=== PATIENT | male | born 1980 | race Two or more races ===

== ENCOUNTER 2019-06-19 20:06 | Emergency (ER) | payer MEDICAID ==
[~2019-06-19] VITALS: Ht 185.4 cm; Wt 93.4 kg
[~2019-06-19 20:06] MED LIST: GLY5T; METF-372; NOVOLOG
[2019-06-19 20:33] VITALS: BP 137/85
[2019-06-20] MEDS ORDERED: cefTRIAXone SOD 1,000 MG VL IM ONE (01:00)
== END 2019-06-20 01:10 | disposition home or self-care (01) ==
LOC: ER 20:16
DX: E11.621 Type 2 diabetes mellitus with foot ulcer (principal); L97.529 Non-pressure chronic ulcer of other part of left foot with unspecified severity; M79.672 Pain in left foot; E11.22 Type 2 diabetes mellitus with diabetic chronic kidney disease; N18.6 End stage renal disease; Z79.84 Long term (current) use of oral hypoglycemic drugs; Z79.899 Other long term (current) drug therapy
CPT/HCPCS: 73700; 96372; 99284; J0696

== ENCOUNTER 2020-02-28 17:19 | Inpatient (IN) | payer MEDICAID ==
[~2020-02-28] VITALS: Ht 185.4 cm; Wt 96.0 kg
[2020-02-28] MEDS ORDERED: ACETAMINOPHEN 325 MG TAB PO ONE (17:45)
[2020-02-28 18:10] LABS: Basophils # (auto) 0.1 10 ^3/uL (0-0.2); Basophils % (auto) 0.6 % (0.0-2.0); Eosinophils # (auto) 0.1 10 ^3/uL (0-0.8); Eosinophils % (auto) 1.1 % (0.0-7.0); Hemoglobin 11.6 g/dL (13.5-17.5); Lymphocytes # (auto) 1.6 10 ^3/uL (0.4-5.4); Lymphocytes % (auto) 13.6 % (10.0-50.0); Mean Corpuscular Hemoglobin 30.8 pg (28.0-32.0); Mean Corpuscular Hgb Conc. 33.3 g/dL (32.0-36.0); Mean Corpuscular Volume 92.5 fL (80.0-100.0); Monocytes # (auto) 0.7 10 ^3/uL (0-1.3); Monocytes % (auto) 6.3 % (0.0-12.0); Neutrophils # (auto) 9.4 10 ^3/uL (1.6-8.6); Neutrophils % (auto) 78.4 % (37.0-80.0); Nucleated Red Blood Cells % 0.1 %; Platelet Count (auto) 321 10^3/uL (140-450); Red Blood Cells 3.78 10^6/uL (4.5-5.90); Red Cell Distribution Width 13.8 % (11.8-14.3)
[2020-02-28 18:28] LABS: Albumin 3.4 g/dL (3.4-5.0); BUN/Creatinine Ratio 4.1; Calcium 7.9 mg/dL (8.5-10.1); Potassium 4.2 mmol/L (3.5-5.1)
[2020-02-28 18:31] LABS: Bilirubin, Total 0.4 mg/dL (0.2-1.0); Total Protein 8.5 g/dL (6.4-8.2)
[2020-02-28] MEDS ORDERED: VANCOMYCIN PER PHARMACY 0 MG IV SCH (20:00)
[2020-02-28] MEDS ORDERED: VANCOMYCIN 1GM/250ML 250 ML IV ONE (21:00)
[2020-02-28] MEDS ORDERED: NITROGLYCERIN 0.4 MG SL TAB SL PRN (21:15)
[2020-02-28] MEDS ORDERED: ONDANSETRON HCL 4 MG/2 ML VIAL IV PRN (21:15)
[2020-02-28] MEDS ORDERED: MORPHINE SULF INJ 2 MG/ML SYRINGE 1ML IV PRN ×2 (21:15)
[2020-02-28] MEDS ORDERED: PIPERACILLIN-TAZOB 2.25GM 50 ML IV ONE ×2 (22:00)
[2020-02-28] MEDS ORDERED: DEXTROSE (50%) 50ML SYRG IV PRN (22:15)
[2020-02-28 22:22] VITALS: BP 125/73
--- NOTE | 2020-02-28 22:22 | NUR ---
Telemetry admit from ER [facility] admitted to Telemetry unit after SBAR received. Patient oriented to Tiff desai RN, unit, room, bed, and unit policies regarding patient care and visiting hours. Patient now on continuous telemetry monitoring, tele box # 80 and telemetry reading on arrival to unit is SR 92. Patient placed on bedside oxygen, weighed by bed scale and encouraged to call if they need something. All questions and concerns addressed, patient verbalized understanding. Note: Came per wheelchair awake alert oriented x 4, placed in the bed comfortably, vital sigs checked.
--- NOTE | 2020-02-28 22:35 | NUR ---
Advised the patient to tell his family to bring all home meds.and said his girlfriend will bring it brandee.
[2020-02-28 22:55] VITALS: BP 125/73
--- NOTE | 2020-02-28 22:55 | NUR ---
Picture taken of the posterior left great toe ,cleansed with N.S , covered with dry gauze and taped it.
[2020-02-29] VITALS (7 sets, daily range): BP systolic 121–150; BP diastolic 82–94
[2020-02-29] MEDS ORDERED: PIPERACILLIN-TAZOB 3.375GM 100 ML IV SCH
[2020-02-29] MEDS: PIPERACILLIN-TAZOB 2.25GM 50 ML IV SCH ×4 (03:44→22:31)
[2020-02-29] MEDS: ACCU-CHEK COMFORT CURVE STRIP VI SCH ×4 (06:19→22:00)
[2020-02-29] MEDS: InsuLIN REG 1unit/0.01ml Soln (100units/ml) SC SCH ×3 (06:21→16:46)
--- NOTE | 2020-02-29 07:24 | NUR ---
Report given to Maikel Flores, patient is resting no distress, and told that girlgiend of the patient will bring patient home meds.
--- NOTE | 2020-02-29 07:49 | NUR ---
Opening Note Assumed pt care from NOC RN. Pt is a/ox4 with no s/s of distress or SOB. Pt is currently sitting at edge of bed wiht no complaints at this time. Discussed POC with pt; pending MRI and podiatry consult; pt verbalized understanding. Would to greater L toe noted; dressing is clean, dry and intact. Safety measures maintained with call light within reach, bed in lowest position and side rails up. Will continue monitor for changes.
[2020-02-29 07:56] LABS: BUN/Creatinine Ratio 4.8; Potassium 4.4 mmol/L (3.5-5.1)
[2020-02-29] MEDS ORDERED: FURO80TA3 PO (08:42)
[2020-02-29] MEDS ORDERED: LISI10TA6 PO (08:42)
[2020-02-29] MEDS ORDERED: APIX5TAB PO (08:42)
[2020-02-29] MEDS ORDERED: AMOX250C3 PO (08:42)
[2020-02-29] MEDS ORDERED: CINA30TA2 PO (08:42)
[2020-02-29] MEDS ORDERED: AML5T PO (08:42)
[2020-02-29] MEDS ORDERED: ATOR10TA52 PO (08:42)
[2020-02-29] MEDS ORDERED: CALC667C PO (08:42)
--- NOTE | 2020-02-29 08:46 | NUR ---
Pt's Medications List of pt's medications provided. Home medications continued per MD's orders.
[2020-02-29] MEDS: LISINOPRIL 10 MG TAB PO SCH (09:42)
[2020-02-29] MEDS: APIXABAN 5 MG TAB PO SCH ×2 (09:42→22:31)
[2020-02-29] MEDS: FUROSEMIDE 40 MG TAB PO SCH (09:42)
[2020-02-29] MEDS: amLODIPine BESYLATE 5 MG TAB PO SCH (09:43)
[2020-02-29] MEDS: CINACALCET HYDROCHLORIDE 30 MG TAB PO SCH (09:43)
--- NOTE | 2020-02-29 10:22 | NUR ---
WOUND CARE NOTE: Wound care in to see patient per wound care request regarding "posterior left great toe" wound that are noted present on admission. Bedside nurse took photograph of patient's wound upon admission for reference. Patient is 39 y/o male with admitting diagnosis of Diabetic Foot Ulcer, Osteomyelitis. Patient is resting in bed in Rm. 284A. Patient is awake, alert and oriented. He's ambulatory and self turning and repositioning. His Tomás score is 21. Patient is in no stated pain at this time, however, reports that his L Foot hurts to walk. Noted patient's plantar L great toe has open full thickness wound measuring 0.5x1.0x0.7cm. Wound is red with yellow hyperkeratotic ring. Dorsal aspect of L great toe is erythremic and has mild edema. Minimal amount of serosanguineous drainage noted, no odor noted. Wound culture specimen reported taken and sent to lab for processing. Patient reported that he has had the L great toe wound "for five years off and on" He added that wound started as callous from wearing boots" and developed to ulcer, will close and reopen. Patient continued further that he used to see a hitch technician in [facility] but stopped when he moved here. Cleansed patient's L great toe wound with wound cleanser, patted dry with gauze, applied Thera honey gel,covered with Opti foam, wrapped with CoBan. Patient tolerated well. New photograph of patient's wound are taken for reference. RECOMMENDATION: Nursing to continue Daily/PRN dressing change to L great toe wound per MD order, Dietary consult,Podiatry consult, elevate affected extremity on pillows, continue monitoring by wound care while patient is hospitalized. Addendum: 02/29/20 at 1419 by Jazlyn Lopez RN Amended: Links added.
--- NOTE | 2020-02-29 10:50 | NUR ---
Dr Richmond Called MD requested a status on pt. Requested an Arterial study be done to pt's L lower extremity. Orders read back and verified. Will implement and continue to monitor.
[2020-02-29] MEDS: CALCIUM ACETATE 667 MG CAP PO SCH ×2 (11:24→17:19)
--- NOTE | 2020-02-29 13:23 | NUR ---
Low Grade Temp Reported Temperature of 100.2 reported. Cooling measures have been initiated. There is currently no PRN orders for Tylenol. Left message with Dr Gillis for orders. Will continue to monitor. Addendum: 02/29/20 at 1445 by TANYA FULTON RN RN Rechecked pt's temperature; currently 98.8. Will continue to monitor. Addendum: 02/29/20 at 1526 by TANYA FULTON RN RN New orders give. Will implement.
[2020-02-29] MEDS ORDERED: VANCOMYCIN 1GM/250ML 250 ML IV ONE (15:00)
[2020-02-29] MEDS ORDERED: ACETAMINOPHEN 500 MG TAB PO PRN (15:30)
--- NOTE | 2020-02-29 15:47 | NUR ---
Dr Gillis at Bedside MD to see pt. Discussed POC with pt and pending MRI. No new orders at this time. Will continue to monitor.
--- NOTE | 2020-02-29 19:20 | NUR ---
Opening Shift Note Received report from jordy Ferro RN. Assumed care of patient, awake and alert. No S/S of distress/SOB or pain. Instructed on POC and to call for assist PRN, will continue to monitor for changes Q1hr and PRN. Bed placed in lowest position and call light within reach.
[2020-02-29] MEDS ORDERED: ATORVASTATIN 20 MG TAB PO SCH (22:00)
[2020-02-29] MEDS ORDERED: InsuLIN REG 1unit/0.01ml Soln (100units/ml) SC SCH (22:00)
[2020-03-01] MEDS: PIPERACILLIN-TAZOB 2.25GM 50 ML IV SCH ×3 (03:36→16:40)
[2020-03-01 05:00] VITALS: BP 128/87
[2020-03-01 05:58] LABS: Basophils # (auto) 0.1 10 ^3/uL (0-0.2); Basophils % (auto) 1.1 % (0.0-2.0); Eosinophils # (auto) 0.2 10 ^3/uL (0-0.8); Eosinophils % (auto) 1.5 % (0.0-7.0); Hematocrit 32.8 % (41.0-53.0); Hemoglobin 11.2 g/dL (13.5-17.5); Lymphocytes # (auto) 1.5 10 ^3/uL (0.4-5.4); Lymphocytes % (auto) 13.8 % (10.0-50.0); Mean Corpuscular Hemoglobin 31.4 pg (28.0-32.0); Mean Corpuscular Hgb Conc. 34.2 g/dL (32.0-36.0); Mean Corpuscular Volume 91.7 fL (80.0-100.0); Monocytes # (auto) 1.2 10 ^3/uL (0-1.3); Monocytes % (auto) 10.9 % (0.0-12.0); Neutrophils # (auto) 7.8 10 ^3/uL (1.6-8.6); Neutrophils % (auto) 72.7 % (37.0-80.0); Platelet Count (auto) 333 10^3/uL (140-450); Red Blood Cells 3.58 10^6/uL (4.5-5.90); Red Cell Distribution Width 13.4 % (11.8-14.3); White Blood Cell 10.8 10^3/uL (4.4-10.8)
[2020-03-01] MEDS: InsuLIN REG 1unit/0.01ml Soln (100units/ml) SC SCH ×2 (06:52→12:23)
[2020-03-01] MEDS: ACCU-CHEK COMFORT CURVE STRIP VI SCH ×2 (06:52→12:22)
[2020-03-01] MEDS ORDERED: SODIUM CHL 0.9% 1000 ML BAG XX ONE (07:00)
--- NOTE | 2020-03-01 08:00 | NUR ---
Opening Shift Note Assumed care of patient, awake and alert. No S/S of distress/SOB or pain. With diabetic ulcer on left big toe dressing dry and intact. Instructed on POC and to call for assist PRN, will continue to monitor for changes Q1hr and PRN.
[2020-03-01] MEDS: CALCIUM ACETATE 667 MG CAP PO SCH ×2 (08:32→12:22)
[2020-03-01 09:00] VITALS: BP 130/76
[2020-03-01] MEDS: FUROSEMIDE 40 MG TAB PO SCH (09:00)
[2020-03-01] MEDS: LISINOPRIL 10 MG TAB PO SCH (10:00)
[2020-03-01] MEDS: amLODIPine BESYLATE 5 MG TAB PO SCH (10:00)
[2020-03-01] MEDS: APIXABAN 5 MG TAB PO SCH (10:06)
[2020-03-01] MEDS: CINACALCET HYDROCHLORIDE 30 MG TAB PO SCH (10:06)
[2020-03-01 13:00] VITALS: BP 148/93
--- NOTE | 2020-03-01 13:00 | NUR ---
Dressing on left big toe changed.
--- NOTE | 2020-03-01 15:30 | NUR ---
Hemodialysis done 3liters out. MRI of left foot will be scheduled tomorrow AM. Dr. Basilio zelaya.
[2020-03-01 16:36] VITALS: BP 142/86
[2020-03-01 17:00] VITALS: BP 126/69
--- NOTE | 2020-03-01 17:45 | NUR ---
Wound photos taken on left great toe.
--- NOTE | 2020-03-01 18:00 | NUR ---
Discharge instructions given as ordered. Encourage to follow up with PMD Dr. Nikolai Lan in 1 week as instructed. All questions and concerns addressed. Patient verbalized understanding. Medication reconciliation form completed and copy given to patient. IV removed with catheter intact, pressure dressing applied. Telemetry unit returned to ICU. Patient taken to vehicle via wheelchair with all personal belongings, accompanied by staff and family member. No distress noted at time of departure.
== END 2020-03-01 18:00 | disposition home or self-care (01) | DRG 344 ==
LOC: ER 17:19 → TELE 17:20 → TELE-WESTW 22:31
PROVIDERS: ADMIT Internal Medicine; ATTEND Internal Medicine
PROC: 5A1D70Z Performance of Urinary Filtration, Intermittent, Less than 6 Hours Per Day (ICD-10-PCS; principal; 2020-03-01)
DX: E11.621 Type 2 diabetes mellitus with foot ulcer (principal); M86.8X7 Other osteomyelitis, ankle and foot; E11.22 Type 2 diabetes mellitus with diabetic chronic kidney disease; L97.529 Non-pressure chronic ulcer of other part of left foot with unspecified severity; I12.0 Hypertensive chronic kidney disease with stage 5 chronic kidney disease or end stage renal disease; D63.1 Anemia in chronic kidney disease; Z99.2 Dependence on renal dialysis; L03.032 Cellulitis of left toe; D72.829 Elevated white blood cell count, unspecified; N18.6 End stage renal disease; E11.69 Type 2 diabetes mellitus with other specified complication; Z82.3 Family history of stroke; Z82.49 Family history of ischemic heart disease and other diseases of the circulatory system; Z83.3 Family history of diabetes mellitus; Z95.1 Presence of aortocoronary bypass graft
CPT/HCPCS: 36415; 73630; 73700; 80048; 80053; 80202; 82306; 82962; 83970; 84100; 84550; 85025; 87077; 87081; 87186; 87205; 90935; 93926; 96365; 96366; G0378; J1642; J1815; J2405; J2543

== ENCOUNTER → 2022-05-20 | Outpatient (CLI) | payer MEDICARE, MEDICAID ==
[~2022-05-20] VITALS: Ht 185.4 cm; Wt 97.5 kg
[~2022-05-20] MED LIST changes: +ADENOSINE 82 MG in GIVE UN-DILUTED 0 ML IV ONE; +ADENOSINE 90 MG/30 ML INJ IV ONE; +AML5T PO; +AMOX250C3 PO; +APIX5TAB PO; +ATOR10TA52 PO; +CALC667C PO; +CINA30TA2 PO; +FURO80TA3 PO; -GLY5T; +GLYB5TAB9; +LISI-716 PO
== END | disposition home or self-care (01) ==
LOC: Rad HDHVI 12:55
PROVIDERS: ATTEND Internal Medicine Cardiovascular Disease
DX: I12.0 Hypertensive chronic kidney disease with stage 5 chronic kidney disease or end stage renal disease (principal); E11.22 Type 2 diabetes mellitus with diabetic chronic kidney disease; N18.6 End stage renal disease; E78.5 Hyperlipidemia, unspecified; Z82.49 Family history of ischemic heart disease and other diseases of the circulatory system
CPT/HCPCS: 78452; 93005; 96374; 96375; A9500; J0153

== ENCOUNTER → 2022-05-27 | Outpatient (CLI) | payer MEDICARE, MEDICAID ==
[~2022-05-27] MED LIST changes: -ADENOSINE 82 MG in GIVE UN-DILUTED 0 ML IV ONE; -ADENOSINE 90 MG/30 ML INJ IV ONE
== END | disposition home or self-care (01) ==
LOC: Rad HDHVI 12:42
PROVIDERS: ATTEND Internal Medicine Cardiovascular Disease
DX: I10 Essential (primary) hypertension (principal)
CPT/HCPCS: 93306

== ENCOUNTER 2023-02-11 05:16 | Emergency (ER) | payer MEDICARE, MEDICAID ==
[~2023-02-11] VITALS: Ht 180.3 cm; Wt 109.1 kg
[~2023-02-11 05:16] MED LIST changes: -LISI-716 PO; +LISI10TA34 PO
[2023-02-11] MEDS ORDERED: SODIUM BICARBONATE 8.4% INJ 50ML SYRINGE IV ONE (05:17)
[2023-02-11] MEDS ORDERED: MAGNESIUM SULF 50% 40 MEQ/10 ML VL IV ONE (05:17)
[2023-02-11] MEDS ORDERED: CALCIUM CHL(10%) 100MG/ML 10ML VIAL IV ONE (05:17)
[2023-02-11] MEDS ORDERED: AMIODARONE HCL (50 MG/ ML) 3 ML VIAL IV ONE (05:17)
[2023-02-11] MEDS ORDERED: EPINEPHrine HCL 1 MG/10 ML SYRG IV ONE (05:17)
[2023-02-11] MEDS ORDERED: EPINEPHrine HCL 1 MG/10 ML SYRG ONE ×2 (05:36→05:39)
== END 2023-02-11 15:45 ==
LOC: ER 05:16 → EDBD 05:16 → ER 15:45
DX: I46.9 Cardiac arrest, cause unspecified (principal); E11.22 Type 2 diabetes mellitus with diabetic chronic kidney disease; I12.0 Hypertensive chronic kidney disease with stage 5 chronic kidney disease or end stage renal disease; N18.6 End stage renal disease; R06.89 Other abnormalities of breathing; Z90.49 Acquired absence of other specified parts of digestive tract; Z88.1 Allergy status to other antibiotic agents
CPT/HCPCS: 31500; 92950; 99291; J0171; J0282; J3475